=== PATIENT | female | born 1970 | race Caucasian/White ===

== ENCOUNTER 2025-05-10 18:57 | Emergency (ER) | payer OTHER ==
[2025-05-10] MEDS ORDERED: Acetaminophen 500 MG TAB ONE (19:55)
[2025-05-10 20:53] LABS: CAUTI Indications for Culture Dysuria,urgency,freq; Glucose, Urine (Dipstick) Normal (Negative); Leukocyte 500 Leu/uL (Negative); Protein, Urine (Dipstick) 50 mg/dL (Neg-Trace); RBC/HPF 0-3 HPF (0-3); Specific Gravity, Urine 1.013 (1.002-1.036); WBC/HPF Greater than 50 HPF (0-3)
[2025-05-10 20:54] LABS: Bacteria/HPF 1+ HPF (None Seen)
[2025-05-10 20:55] LABS: Urine Culture Reflex Yes Yes
[2025-05-10 21:01] LABS: ALT (SGPT) 17 U/L (Less than 34); AST (SGOT) 19 U/L (11-34); Albumin 3.4 g/dL (3.1-4.5); Alkaline Phosphatase 58 U/L (40-110); Anion Gap 17 mmol/L (10-20); BUN (Urea Nitrogen) 13 mg/dL (9.8-20.1); Bilirubin, Total 0.7 mg/dL (0.3-1.2); CK (CPK) 25 U/L (29-168); Calc. Creatinine Clearance 0 mL/min (70-130); Calcium 8.7 mg/dL (7.8-10.44); Carbon Dioxide 22 mmol/L (22-29); Chloride 98 mmol/L (98-107); Globulin 3.1 g/dL (2.4-3.5); Glucose 103 mg/dL (70-105); Magnesium 2.0 mg/dL (1.6-2.6); Potassium 4.0 mmol/L (3.5-5.1); Sodium 133 mmol/L (136-145)
[2025-05-10 21:03] LABS: Platelet Adequacy Comment Platelets Normal; RBC Morphology Within Normal Limits
[2025-05-10 21:04] LABS: #Basophils Less than 0.03 10x3/uL (0.0-0.2); #Eosinophils Less than 0.03 10x3/uL (0.0-0.7); #Monocytes 0.49 10x3/uL (0.11-0.59); #Neutrophils 4.88 10x3/uL (1.40-6.50); %Basophils 0.2 % (0.0-1.0); %Eosinophils 0.0 % (0.0-10.0); %Lymphocytes 10.3 % (21.0-51.0); %Monocytes 8.1 % (0.0-10.0); %Neutrophils 81.1 % (42.0-75.0); Hematocrit 35.9 % (36.0-47.0); Hemoglobin 12.0 g/dL (12.0-16.0); Mean Corpuscular Hemoglobin 29.1 pg (27.0-31.0); Mean Corpuscular Volume 86.9 fL (78.0-98.0); Platelet Count 137 10x3/uL (130-400); Red Blood Cell (RBC) Count 4.13 mill/uL (4.20-5.40); White Blood Cell (WBC) Count 6.02 10x3/uL (4.8-10.8)
[2025-05-10] MEDS ORDERED: cefTRIAXone (ROCEPHIN) 1 GM VIAL ONE (21:39)
== END 2025-05-10 22:41 | disposition home or self-care (01) ==
LOC: ERS 18:57
DX: N39.0 Urinary tract infection, site not specified (principal); I10 Essential (primary) hypertension; Z79.899 Other long term (current) drug therapy
CPT/HCPCS: 71046; 80053; 81001; 82550; 83735; 85025; 87081; 87086; 87428; 87430; 96365; 96375; J0696